=== PATIENT | female | born 1990 | race Caucasian/White ===

== ENCOUNTER 2023-11-06 10:14 | Emergency (ER) | payer OTHER, SELFPAY ==
--- NOTE | 2023-11-06 11:10 | ED_ITS ---
HPI - Headache General Chief Complaint: Headache Stated Complaint: migraine Time Seen by Provider: 11/06/23 12:49 Source: patient and family (patient's fianc?) Mode of arrival: ambulatory Limitations: no limitations History of Present Illness ED Provider: Mishel Harley PA-C HPI Narrative: Patient is a 33 year old assigned female at with a history of migraines presenting to the emergency department today with right sided sinus pressure and migraine headache. Patient states that she has had 3 days of right sided facial pain that has caused a right sided headache. Patient states that she is concerned because her brother was recently diagnosed with an acoustic neuroma. Patient denies any dizziness, lightheadedness, abdominal pain, fever, chills, blurry vision, double vision, loss of vision, chest pain, difficulty breathing, shortness of breath, back pain, night sweats, pain with urination, increased urinary frequency, increased urinary urgency, blood in her urine or stool, syncope or a near syncopal episode, recent trauma or falls, bowel incontinence, bladder incontinence, or any other complaints at this time. MD elicited complaint: headache Onset (ago): day(s) (3) Location: right and facial Related Data Previous Rx's ?Medication ?Instructions ?Recorded ondansetron 4 mg disintegrating 4 mg PO Q8H 3 days #9 tabs 11/06/23 tablet Allergies Allergy/AdvReac Type Severity Reaction Status Date / Time cephalexin [From Keflex] Allergy Rash Verified 11/06/23 11:12 oxycodone Allergy Angioedema Verified 11/06/23 11:12 Review of Systems 2 Constitutional: Constitutional: Reports no additional constitutional complaints, Denies chills, Denies fever(s), Reports headache(s) and Denies night sweats Eyes: Eyes: Reports no additional eye complaints, Denies blurry vision, Denies change in vision, Denies diplopia, Denies eye discharge, Denies loss of vision and Denies eye pain ENT: Denies dizziness, Reports headache(s) and Reports sinus pain Cardiovascular: Cardiovascular: Reports no additional cardiovascular complaints, Denies chest pain, Denies lightheadedness, Denies Loss of Consciousness and Denies dyspnea Respiratory: Respiratory: Reports no additional respiratory complaints and Denies dyspnea Gastrointestinal: Gastrointestinal: Reports no additional gastrointestinal complaints, Denies abdominal pain, Denies melena, Denies hematochezia, Denies change in bowel habits and Denies change in stool character Genitourinary: Genitourinary: Denies hematuria, Denies urinary frequency, Denies dysuria, Denies urinary incontinence, Denies urinary hesitancy and Denies urinary urgency Musculoskeletal: Musculoskeletal: Reports no additional musculoskeletal complaints, Denies numbness and Denies tingling Neurologic: Denies dizziness, Reports headache(s), Denies loss of vision, Denies numbness and Denies tingling Psychiatric: Psychiatric: Reports no additional psychiatric complaints Endocrine: Endocrine: Reports no additional endocrine complaints Hematologic/Lymphatic: Hematologic/Lymphatic: Reports no additional hematologic/lymphatic complaints Allergic/Immunologic: Allergic/Immunologic: Reports no additional allergic/immunologic complaints PMFSH Past Medical History Attestation statement: The following information was validated with the patient. (patient's fianc? validated all information) Source: old records reviewed, obtained from family (patient's fianc? provided additional history and confirmed the history provided by the patient) and nursing notes reviewed Social History Social History Advance Directives: No Physical Exam 2 Vital Signs: Vital Signs: Last Vital Signs Temp 97 F 11/06/23 11:11 Pulse 81 11/06/23 11:11 Resp 16 11/06/23 11:11 BP 127/73 11/06/23 11:11 Pulse Ox 100 11/06/23 11:11 O2 Del Method Room Air 11/06/23 11:11 BMI result Body Mass Index 43.0 Const: General: cooperative, no acute distress, alert and awake Nutritional Appearance: well nourished Orientation/consciousness: patient oriented x3 Limitations: no limitations HEENT: Head: Yes normal to inspection and Yes atraumatic Ears: hearing grossly normal bilaterally and external ears normal General nose exam: Normal external nose present, no nasal discharge noted and no epistaxis Face and sinus: Yes normal facial exam, No abrasion and No laceration Mouth: Normal oral and palatal mucosa present, no drooling and no muffled voice Eyes: General: appearance normal, both eyes and all related structures P eriorbital: periorbital findings normal Eyelids: Yes eyelids normal C onjunctivae: conjunctivae normal Pupils: Equal, round and reactive pupils present EOM: EOMs intact bilaterally Neck: Neck: Yes normal visual inspection, Yes full ROM and Yes no lymphadenopathy Chest: Chest palpation & inspection: normal inspection of the chest Resp: Effort & Inspection: normal respiratory effort and able to speak in complete sentences GI: Inspection: Yes normal to inspection Neuro: General: patient oriented x3 and moves all extremities Cranial nerves: Yes Equal, round and reactive pupils present Cognition (Neuro): n ormal cognition Extrem: General: Yes normal to inspection, Yes full ROM and Yes capillary refill normal Psych: Appearance: grossly normal Mental Status: mental status grossly normal Affect: normal affect Attitude: cooperative Thought process: N ormal thought process present Thought content: Normal thought content present Insight: Good insight present (Psych) Course Course Course Narrative: This is a Rapid Medical Examination (RME) performed by Dequan Moffett PA-C in triage. Full HPI, ROS, assessment and treatment plan per primary provider in the Main ED. 33 yo female with history of migraines on Topamax who is presenting to the ER for evaluation of right sided migraine for the last 3 days. went to Urgent Care who referred her to the ER for further evaluation and treatment. has responded well to IV meds and IM meds in the past. headache now is right sided which is typical for her. in triage, patient AAO X3, no distress. strength is equal and symmetrical throughout. no nystagmus. breathing comfortably. Plan: treat w/ IV vs IM meds per primary provider Medications Administered Discontinued Medications Generic Name Dose Route Start Last Admin Trade Name Freq PRN Reason Stop Dose Admin Diphenhydramine HCl 50 mg 11/06/23 12:50 11/06/23 13:29 Diphenhydramine Hcl 50 Mg/Ml Vial IVPUSH 11/06/23 12:51 50 mg ONCE ONE Administration Sodium Chloride 1,000 mls @ 999 mls/hr 11/06/23 13:00 11/06/23 13:28 Ns IV 11/06/23 14:00 999 mls/hr .Q1H1M JATINDER Administration Ketorolac Tromethamine 15 mg 11/06/23 12:50 11/06/23 13:29 Ketorolac Tromethamine 15 Mg/Ml Vial IVPUSH 11/06/23 12:51 15 mg ONCE ONE Administration Ondansetron HCl 4 mg 11/06/23 12:50 11/06/23 13:29 Ondansetron Hcl 4 Mg/2 Ml Vial IVPUSH 11/06/23 12:51 4 mg ONCE ONE Administration Medical Decision Making Medical Decision Making [facility] Narrative: Patient is a 33 year old assigned female at with a history of migraine presenting to the emergency department today with right sided headache and sinus pain. Patient's physical exam was unremarkable. Patient's blood work showed a mildly elevated WBC count which is consistent with a stress reaction, the rest of the patient's labs are unremarkable. I explained my physical exam findings as well as all test results to the patient and the patient's fiance. I answered all questions asked by the patient and the patient's fiance. Patient received IV Toradol, Zofran, Benadryl, and IV fluids which she stated helped her symptoms significantly. I stressed the importance of the patient taking her medication as directed (either prescribed or as the over the counter packaging recommends). I stressed the importance of the patient following up with her primary care provider and a neurologist. I stressed the importance of the patient returning to the emergency department immediately if her symptoms were to worsen or if she were to develop any dizziness, shortness of breath, difficulty breathing, chest pain, blurry vision, loss of vision, nausea, vomiting, abdominal pain, fever, chills, back pain, or any other complaints. Patient and the patient's fiance verbalized agreement and understanding with this treatment plan and discharge. Differential Diagnosis Differential Diagnoses: The differential diagnosis associated with the presentation includes Migraine COVID-19 Influenza RSV Sinusitis Admission/Observation Consideration of admission/observation: Escalation of care including admission/observation considered Patient would have been admitted to the hospital had her work up had any findings where hospital admission was appropriate and her clinical presentation warranted hospital admission. Lab Data [facility] Lab Attestation statement: I reviewed the patient's lab results. My interpretation of these results are in the [facility] Rationale portion of this note. 11/06/23 13:14 11/06/23 13:14 Labs: Lab Results 11/06/23 11/06/23 Range/Units 13:14 13:24 WBC 14.7 H (4.8-10.8) X10*3/uL RBC 5.20 (4.20-5.50) X10*6/uL Hgb 15.2 (12.0-16.0) g/dl Hct 45.6 (37.0-47.0) % MCV 87.7 (80.0-98.0) fL MCH 29.2 (27.0-33.0) pg MCHC 33.3 (31.0-35.0) g/dl RDW 12.6 (11.0-16.0) % Plt Count 353 (160-400) X10*3/uL MPV 10.1 (9.4-12.3) fL Immature Gran % (Auto) 0.6 H (0.0-0.4) % Neut % (Auto) 79.6 H (45-73) % Lymph % (Auto) 15.8 L (20-40) % [place] % (Auto) 3.5 (2-11) % Eos % (Auto) 0.3 (0-4) % Baso % (Auto) 0.2 (0-2) % Lymph # (Auto) 2.3 (1.2-4.9) X10*3/uL [place] # (Auto) 0.5 (0.1-1.2) X10*3/uL Eos # (Auto) 0.0 (0.0-0.4) X10*3/uL Baso # (Auto) 0.0 (0.0-0.2) X10*3/uL Abs Immat Gran (auto) 0.09 H (0.00-0.03) X10*3/uL Absolute Neuts (auto) 11.7 H (2.0-8.3) x10*3/uL Absolute Nucleated RBC 0.000 (0.0-0.012) X10*3/uL Nucleated RBC % (auto) 0.0 (0.0-0.2) /100WBC Sodium 138 (135-145) mmol/L Potassium 3.6 (3.3-5.1) mmol/L Chloride 110 H (96-108) mmol/L Carbon Dioxide 20 L (22-29) mmol/L Anion Gap 12 (12-20) BUN 9 (9-16) mg/dL Creatinine 0.80 (0.5-1.4) mg/dL Estim Creat Clear Calc 139.5 Estimated GFR > 60 Random Glucose 114 (60-115) mg/dL Calcium 9.3 (8.4-10.2) mg/dL Total Bilirubin 0.5 (0.0-1.0) mg/dL AST 16 (5-31) U/L ALT 23 (0-31) U/L Alkaline Phosphatase 99 (39-117) U/L Total Protein 8.0 (6.5-8.0) g/dL Albumin 4.5 (3.5-5.0) g/dL Beta HCG, Quant < 2 mIU/mL Influenza Type A (PCR) NEGATIVE (Negative) Influenza Type B (PCR) NEGATIVE (Negative) RSV RNA Qual (PCR) NEGATIVE (Negative) SARS-CoV-2 RNA (RT-PCR) NEGATIVE (Negative) S. pyogenes GrpA BROOK Negative (Negative) Independent Historian Clinical information obtained from an independent historian. History obtained from or confirmed by: Other (patient's fiance provided additional history and confirmed the history provided by the patient.) Discharge Plan Discharge Clinical Impression: Migraine Patient Disposition: Home, Self-Care Instructions: Migraine Headache (ED) Additional Instructions: Follow up with your primary care provider and a neurologist. Return to the emergency department immediately if your symptoms worsen or if you develop any dizziness, shortness of breath, difficulty breathing, chest pain, blurry vision, loss of vision, nausea, vomiting, abdominal pain, fever, chills, back pain, or any other complaints. Prescriptions: New ondansetron 4 mg tablet,disintegrating 4 mg PO Q8H 3 Days Qty: 9 0RF Referrals: [facility] [place] [facility] [Provider Group] (Call to establish and follow up with a neurologist. ) Duy Adams MD [Primary Care Provider] - Stand Alone Forms: Work/School Release Print Language: Malagasy
[2023-11-06 11:11] VITALS: BP 127/73; PULSE 81; RESP 16; TEMP 36.1; O2SAT 100; BMI 43.0
[2023-11-06 13:19] LABS: MANUAL DIFF FLAG NO
[2023-11-06 13:28] LABS: Basophils Percent Auto 0.2 % (0-2); Eosinophils Percent Auto 0.3 % (0-4); Hematocrit 45.6 % (37.0-47.0); Hemoglobin 15.2 g/dl (12.0-16.0); Imm Gran Abs Auto 0.09 X10*3/uL (0.00-0.03); Imm Gran Pct Auto 0.6 % (0.0-0.4); Lymphocytes Absolute Auto 2.3 X10*3/uL (1.2-4.9); Lymphocytes Percent Auto 15.8 % (20-40); Mean Corpuscular HGB Conc 33.3 g/dl (31.0-35.0); Mean Corpuscular Hemoglobin 29.2 pg (27.0-33.0); Mean Corpuscular Volume 87.7 fL (80.0-98.0); Mean Platelet Volume 10.1 fL (9.4-12.3); Monocytes Absolute Auto 0.5 X10*3/uL (0.1-1.2); Monocytes Percent Auto 3.5 % (2-11); Neutrophils Absolute Auto 11.7 x10*3/uL (2.0-8.3); Neutrophils Percent Auto 79.6 % (45-73); Platelet Count 353 X10*3/uL (160-400); Red Cell Distribution Width 12.6 % (11.0-16.0); White Blood Count 14.7 X10*3/uL (4.8-10.8)
[2023-11-06] MEDS: 0.9 % Sodium Chloride 1,000 ML 999 ML IV (13:28)
[2023-11-06] MEDS: Ketorolac Tromethamine 15 MG/ML VIAL IVPUSH (13:29)
[2023-11-06] MEDS: ondansetron HCL 4 MG/2 ML VIAL IVPUSH (13:29)
[2023-11-06] MEDS: diphenhydrAMINE HCL 50 MG/ML VIAL IVPUSH (13:29)
[2023-11-06 13:42] LABS: Alanine Aminotransferase 23 U/L (0-31); Albumin Level 4.5 g/dL (3.5-5.0); Alkaline Phosphatase 99 U/L (39-117); Anion Gap 12 (12-20); Aspartate Amino Transferase 16 U/L (5-31); Bilirubin Total 0.5 mg/dL (0.0-1.0); Blood Urea Nitrogen 9 mg/dL (9-16); Calcium 9.3 mg/dL (8.4-10.2); Carbon Dioxide 20 mmol/L (22-29); Chloride 110 mmol/L (96-108); Creatinine Clr Calc Pharmacy 139.5; Estimated Glomerular Filt Rate > 60; Glucose Random 114 mg/dL (60-115); Potassium 3.6 mmol/L (3.3-5.1); Sodium 138 mmol/L (135-145)
[2023-11-06 13:44] LABS: HCG Quantitative < 2 mIU/mL
[2023-11-06 14:06] LABS: IDNOW Serial# 08D9AD1C; Strep A Nucleic Acid Negative (Negative)
[2023-11-06 14:17] LABS: Influenza A PCR NEGATIVE (Negative); Influenza B PCR NEGATIVE (Negative); Resp Syncy Virus RNA Qual PCR NEGATIVE (Negative); SARS COV2 PCR INHOUSE NEGATIVE (Negative)
[2023-11-06 15:47] VITALS: BP 127/73; PULSE 81; RESP 16; TEMP 36.1; O2SAT 100
== END 2023-11-06 15:47 | disposition home or self-care (01) ==
PROVIDERS: Physician Assistant Medical; Emergency Provider Emergency Medicine; PCP Internal Medicine
DX: G43.909 Migraine, unspecified, not intractable, without status migrainosus (principal); Z03.818 Encounter for observation for suspected exposure to other biological agents ruled out
CPT/HCPCS: 0241U; 36415; 80053; 84702; 85025; 87651; 96361; 96374; 96375; 99283; 99284; J1200; J1885; J2405

== ENCOUNTER 2023-12-02 14:15 | Outpatient (AMB) | payer OTHER, SELFPAY ==
--- NOTE | 2023-12-02 14:21 | A.OFFVIS_ITS ---
Vital Signs 12/02/23 14:22 Height 5 ft 7 in Weight 274 lb BMI 42.9 BP 114/76 Intake Visit Reasons: New patient Annual Intake Note: First pap, never had pelvic exam before, pt c/o painful intercourse Student Support Counselor: Student Support Counselor Present (Antonia) Allergies cephalexin [From Keflex] Allergy (Verified 12/02/23 14:21) Rash oxycodone Allergy (Verified 12/02/23 14:21) Angioedema Is last menstrual period known: Yes Last menstrual period: 11/12/23 HPI Comments Details: She is a premenopausal woman presenting for new patient annual examination. Doing well with concerns: Painful intimacy at times. This is her 1st pelvic exam today. She tries to eat healthy and stays active with exercise. Regular monthly menses. Currently is sexually active one partner only for both, using condoms. She denies vaginal itching and irritation. STI screening offered; she declined. Denies family history of ovarian or colon cancer. FH breast cancer-mom and MGM. Unsure BRCA testing. Last pap smear-never. [facility] Medical History (Updated 12/02/23 @ 14:44 by Enma Sen CNM) Migraine with aura Family History (Updated 12/02/23 @ 14:28 by XAVIER Brewer) Mother History of breast cancer Maternal Grandmother History of breast cancer Social History (Updated 12/02/23 @ 14:29 by XAVIER Brewer) Alcohol intake: never Patient Tobacco Use Status: Never used Tobacco Sexually active: Yes Sexual orientation: Straight/Heterosexual Gender identity: Female Female Reproductive History Menstrual Duration of menses: 3-5 days Date of last menstrual period: 11/12/23 control method: condoms Total pregnancies: 0 Review of Systems Const All systems reviewed & are unremarkable except as noted in HPI and below Reports as per HPI Eyes Reports no additional complaints ENT Reports no additional complaints Card Reports no additional complaints Resp Reports no additional complaints GI Reports as per HPI and Reports no additional complaints Reports as per HPI Musc Reports no additional complaints Skin/Breast Reports as per HPI Neuro Reports no additional complaints Psych Reports no additional complaints Endo Reports no additional complaints Danial/Lymph Reports no additional complaints Aller/Immun Reports no additional complaints Physical Exam Vital Signs: Last Vital Signs BP 114/76 12/02/23 14:22 BMI result Body Mass Index 42.9 Const General: cooperative, healthy appearing, no acute distress, well developed and alert Orientation/consciousness: patient oriented x3 HEENT Head: Yes normal to inspection Eyes General: appearance normal, both eyes and all related structures Neck Neck: Yes normal visual inspection Thyroid: Thyroid normal Chest Chest palpation & inspection: normal inspection of the chest and other (no puckering, dimpling, peau de orange, retraction, discharge, masses) Breast/axilla inspection: normal inspection of the breasts and Other (Pendulous) Breast/axilla palpation: normal palpation of the breasts Resp Effort & Inspection: normal respiratory effort GI Inspection: Yes normal to inspection Palpation (GI): Soft to palpation Rectal Exam - Female: deferred Other: Pap sampling limited due to visualization unable to insert larger longer speculum due to patient's intolerance of exam. General: Yes bladder normal to palpation External Female Exam: normal external appearance and normal appearance of the urethra Speculum Exam - Vagina: normal appearance of the vagina, normal palpation, normal vaginal discharge and other (Small introitus, long canal) Speculum Exam - Cervix: normal appearance of the cervix, normal palpation and Other cervical findings present (Unable to visualize) Bimanual exam- vagina & uterus: normal bimanual exam, normal palpation, uterine size normal, bladder normal to palpation, normal palpation and non-tender Bimanual Exam- Adnexa, other: no masses Skin General skin exam: no rashes or lesions noted Rashes: no rashes Neuro General: patient oriented x3 Cognition (Neuro): normal cognition Extrem General: Yes normal to inspection Psych Attitude: cooperative Thought process: Normal thought process present Assessment & Plan Assessment & Plan (1) Encounter for well woman exam with routine gynecological exam: Code(s): Z01.419 - Encounter for gynecological examination (general) (routine) without abnormal findings Category: Medical Plan Discussed: Current recommendations for pap smears per ASCCP guidelines. Pap obtained, await results for sampling adequacy. Breast awareness and periodic breast exams. Painful intimacy, use of vaginal lubricants. Maintain a healthy lifestyle including a well balanced diet and routine exercise. BRCA testing, will speak with her mom whether she had testing results and what they were, and will consider having testing herself. Patient verbalizes understanding and agrees to the plan of care. She was given opportunity to ask questions and all questions were answered to the best of my ability. 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 This note is constructed using voice recognition software. While every effort has been made to ensure accuracy, grommet worker errors may have been included. Coding Level of Care Code New Pt Prev Care 18-39yr([id number] Diagnoses Encounter for well woman exam with routine gynecological exam Z01.419
[2023-12-02 14:22] VITALS: BP 114/76; BMI 42.9
== END 2023-12-02 15:15 | disposition home or self-care (01) ==
PROVIDERS: PCP Internal Medicine; Visit Provider Advanced Practice Midwife
DX: Z01.419 Encounter for gynecological examination (general) (routine) without abnormal findings (principal)
CPT/HCPCS: 99385

== ENCOUNTER → 2023-12-02 14:15 | Outpatient (BNVA) | payer OTHER, SELFPAY | PROVIDERS: PCP Internal Medicine; Visit Provider Advanced Practice Midwife ==

== ENCOUNTER 2023-12-02 17:24 | Outpatient (REF) | payer OTHER, SELFPAY ==
[2023-12-05 13:44] LABS: HPV mRNA E6/E7 Not Detected (Not Detected)
== END 2023-12-02 17:25 | disposition home or self-care (01) ==
LOC: HO.LNP 17:24
PROVIDERS: Visit Provider Advanced Practice Midwife
DX: Z01.419 Encounter for gynecological examination (general) (routine) without abnormal findings (principal)
CPT/HCPCS: 87624; 88175

== ENCOUNTER 2024-06-21 14:15 | Outpatient (AMB) | payer OTHER, SELFPAY ==
[2024-06-21 14:48] VITALS: BP 120/74; PULSE 81; O2SAT 99; BMI 39.6
--- NOTE | 2024-06-21 14:48 | A.OFFVIS_ITS ---
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 Her headache history dates back to around age 12, with the evolution to distinct migraines by the onset of menarche. Her migraines are severe, with right-sided predominance, associated with light sensitivity, nausea, and intense pressure. Symptoms typically exacerbate premenstrually or with poor sleep posture. Alcohol and specific foods act as clear triggers. Recent management involves adjusting corrective eyewear, minimizing stress, and avoiding known dietary triggers. She notes a marked decrease in frequency and intensity of migraine symptoms, with a current pattern of sporadic headaches responding variably to [id number] intervention. Noteworthy was an episode necessitating emergency treatment but has implemented home care routines that reduce the severity and duration of migraines, when promptly addressing symptoms. Family History - Maternal history of migraines - Maternal and grandmother history of breast cancer - Paternal history of type 2 diabetes - Maternal history of Graves' disease - Brother with acoustic neuroma Review of Systems - Neurological: Reports occasional dizziness. Denies seizures, syncope, or focal neurological deficits. - Psychiatric: Reports generalized anxiety. - Musculoskeletal: Denies significant joint or muscular complaints. - Cardiovascular: Denies palpitations or other cardiovascular symptoms. - Respiratory: Denies asthma or respiratory conditions. - Gastrointestinal: Denies acid reflux or gastrointestinal distress. - Genitourinary: Reports regular menstrual cycles and denies urinary symptoms. - Hematologic: Denies clotting disorders or abnormal bleeding. - Endocrine: Denies thyroid issues or history of diabetes in herself. - Substance Use: Denies current alcohol consumption, tobacco, or expansive substance use. Headache Review - Onset: Initial headache onset around age 12 - Frequency: Headaches approximately 3-4 times a month - Quality: Right-sided frontal and temporal pressure, tension-like in quality - Location: Predominantly right-sided, frontal, and temporal areas - Associated Symptoms: Light sensitivity, nausea, intense right-sided pressure - Severity: Significant enough to disrupt daily activities, resolves over two to three days - Typical Duration: Migraines last about two days with a lingering postdrome - Aggravating Factors: Alcohol, specific foods such as curries and chele, sleep irregularities and postural challenges, stress - Alleviating Factors: Jzmt-[id number]-gnoeuox medications, improved sleep, avoiding triggers - Neurological Symptoms: No aura, no consistent sensory-motor deficits - Previous Management: Emergency room visits for severe episodes, glasses with a tint for light sensitivity - Family History: Maternal migraines emphasized Medication History Headache Lifestyle Factors - Caffeine Intake: Limits caffeine to mornings, stopping around 10 a.m. - Hydration: Remains conscientious about water intake - Exercise: Walks and hikes on weekends, maintains a treadmill at home - Sleep: Typically achieves 8-9 hours of sleep nightly, practices good sleep hygiene - Sexually Active: Reports no current control usage, no plans for Exercise - Type: Walking and hiking- weather permitting - Frequency: Several times per week - Duration: Variable - Other: Goals to increase exercise consistency Food The patient maintains a reasonably healthy diet and avoids foods triggering her migraines. She limits caffeine and has an established morning routine, with reg ular protein intake in forms that balance her energy levels. She avoids alcohol due to its association with headache induction. Sleep - Typical Bedtime: 9-10 p.m. 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 Physical Exam - Neurological- Pupils equal, round, and reactive to light; cranial nerves II- XII grossly intact on examination - Musculoskeletal- Cervical and shoulder region demonstrate mild tension without focal neurologic deficits - Tendon Reflexes- 2+ bilateral tendon reflexes, symmetrical - Tandem, Romberg, Finger- nose- unremarkable. - MS 5/5 throughout Mental Status Exam - Appearance: well-groomed, cooperative during the assessment - Speech: Normal rate, rhythm, and volume - Mood: Anxious, but engaged appropriately - Sensorium: Alert and oriented - Thought Processes: Organized without evidence of delusions or hallucinations - Judgment: Intact as exhibited through engagement in problem-solving [facility] Medical History (Updated 06/21/24 @ 16:05 by PACHECO Malcolm) Migraine with aura Family History Mother History of breast cancer Maternal Grandmother History of breast cancer Social History Alcohol intake: never Patient Tobacco Use Status: Never used Tobacco Sexual orientation: Straight/Heterosexual Gender identity: Female Physical Exam Vital Signs: Last Vital Signs Pulse 81 06/21/24 14:48 BP 120/74 06/21/24 14:48 Pulse Ox 99 06/21/24 14:48 Oxygen Delivery Method Room Air 06/21/24 14:48 BMI result Body Mass Index 39.6 Assessment & Plan Assessment & Plan (1) Migraine without aura: Code(s): G43.009 - Migraine without aura, not intractable, without status migrainosus Category: Medical (2) Cervicalgia: Code(s): M54.2 - Cervicalgia Category: Medical Plan Plan To manage her migraines effectively, I will prescribe sumatriptan for acute relief, advising its use during preliminary headache symptoms. As adjunct support, magnesium supplementation at night and riboflavin in the morning aim to further reduce headache frequency. Her physical examination suggests benefits from posture correction through physical therapy. The application of previously successful mitigative strategies such as tinted glasses and trigger avoidance remains knutson. Discussion Notes During the consultation, we discussed the differential diagnosis of migraine headaches, emphasizing the chronicity and episodic nature consistent with the patient's symptoms. Alternative management options, including non- pharmacological measures such as posture improvement via physical therapy and lifestyle modifications like caffeine moderation, were also deliberated. I provided information on the use of sumatriptan for acute migraine episodes, discussing potential side effects and administration protocol to maximize benefit. The patient voiced understanding of the strategy outlined. Consideration of prior MRI findings negated the immediate need for further imaging barring new symptom onset. We planned follow-up contingent on her response to treatment adjustments and any new developments. Patient was informed and verbally consented to the use of an ambient scribe for clinic note documentation during this visit. Patient Instructions For acute migraine treatment: - Trial Sumatriptan 100mg tab, 1/2 - 1 tab (50-100mg) at onset of headache, may repeat in 2 hours. Max of 2 tabs (200mg) per 24 hours. - May take sumatriptan with OTC Tylenol 650-1,000mg every 4-6 hours, Ibuprofen (liquid gels) 600mg every 6 hours, or Naproxen (liquid gels) 440mg q 12 hrs prn. - Potential adverse effects of triptans, include but are not limited to nausea, fatigue, chest tightness/tingling (usually passes within a few minutes), medication overuse headaches. For migraine prevention treatment: -start riboflavin 400 mg daily in the morning. Start magnesium 400 mg daily at bedtime. Her overall migraine treatment: - Continue to avoid known dietary triggers and maintain a consistent sleep schedule. - Implement physical therapy to improve posture and potentially reduce headache episodes. - Monitor for any changes or increases in headache frequency or severity. - If symptoms worsen or do not improve with current interventions, contact for re-evaluation. Patient seen in collaboration with Dr. Radhika Taylor Pt to follow-up in 6 months or sooner prn. Orders: Orders PT Evaluation and Treatment 06/21/24 G43.009 - Migraine without aura, not intractable, without status migrainosus, M54.2 - Cervicalgia Medications: New magnesium oxide may hold for loose stools 400 mg PO BEDTIME 30 tabs 6RF 30 days sumatriptan succinate 50 - 100 mg orally at onset of headache, may repeat in 2 hrs PRN; max 2 tabs per day or 4 tabs/week (may take with Ibuprofen) 12 tabs 6RF migraine headache 30 days riboflavin (vitamin B2) 400 mg PO DAILY 30 tabs 6RF 30 days Changed From ondansetron 4 mg PO Q8H 3 days 9 tabs 0RF To ondansetron 4 mg PO Q4H PRN 30 tabs 2RF nausea and vomiting 30 days Coding Level of Care Code New Pt Level 4 (09224) Diagnoses Migraine without aura G43.009 Cervicalgia M54.2
--- OUTSIDE RECORDS SUMMARY | 2024-06-21 16:24 | XMS_ITS | Patient Health Record ---
Author Organization [facility] Billing Info Address [address] [place], [place] [id number] Support Name Relationship Address Phone [place] [facility] Contact Unknown [phone] Ramona Sheikh Guarantor Unknown Reason For Referral No Information Plan Of Treatment No Information Insurance Providers Payer Name Payer Address Payer Phone Subscriber Number Group Number Insured Name Patient Relationship to Insured Coverage Start Date Coverage End Date [facility] [address] [place], [place] [id number] Balbir Fowler Child - Insured does not have Financial Responsibility (includes legally adopted child) 4 5
== END 2024-06-21 16:24 | disposition home or self-care (01) ==
PROVIDERS: PCP Internal Medicine; Visit Provider Nurse Practitioner Family
DX: G43.009 Migraine without aura, not intractable, without status migrainosus (principal); M54.2 Cervicalgia
CPT/HCPCS: 99204

== ENCOUNTER → 2024-06-21 14:15 | Outpatient (BNVA) | payer OTHER, SELFPAY | PROVIDERS: PCP Internal Medicine; Visit Provider Nurse Practitioner Family ==

== ENCOUNTER 2024-09-10 15:44 | Outpatient (AMB) | payer OTHER, SELFPAY ==
--- OUTSIDE RECORDS SUMMARY | 2024-09-10 15:47 | XMS_ITS | Patient Health Record ---
Author Organization [facility] Billing Info Address [address] [place], [place] [id number] Support Name Relationship Address Phone [place] [facility] Contact Unknown [phone] Ramona Sheikh Guarantor Unknown Reason For Referral No Information Plan Of Treatment No Information Insurance Providers Payer Name Payer Address Payer Phone Subscriber Number Group Number Insured Name Patient Relationship to Insured Coverage Start Date Coverage End Date [facility] [address] [place], [place] [id number] Balbir Fowler Child - Insured does not have Financial Responsibility (includes legally adopted child) 4 5
--- NOTE | 2024-09-10 15:56 | A.OFFPC_ITS ---
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: No Accompanied by: Self / Same As Patient Allergies pineapple Allergy (Mild, Verified 09/10/24 16:58) Anaphylaxis prednisone Allergy (Unknown, Verified 09/10/24 16:58) Unknown cephalexin [From Keflex] Allergy (Verified 09/10/24 16:58) Rash oxycodone Allergy (Verified 09/10/24 16:58) Angioedema Medication List - Last Reconciled 09/10/24 by Patt Hurt PA-C magnesium oxide 400 mg PO BEDTIME 30 days ondansetron 4 mg PO Q4H PRN 30 days riboflavin (vitamin B2) 400 mg PO DAILY 30 days semaglutide 0.25 mg (0.368 mL) subcut QWEEK sumatriptan succinate 50 - 100 mg orally at onset of headache, may repeat in 2 hrs PRN; max 2 tabs per day or 4 tabs/week (may take with Ibuprofen) 30 days Tobacco use date assessed: 09/10/24 Dental Screening Dental Screen Date: 09/10/24 Did you have a dental visit in the last 12 months?: Yes Did you have a dental problem in the last 6 months where you did not have access to dental care?: No Was dental information given to patient?: Patient has dentist HPI [facility] Care HPI Details The patient is a 34-year-old female presenting to [facility] with a new primary care provider. She reports chronic migraines for which she uses sumatriptan as needed. Magnesium deficiency has been noted in the past, for which she takes supplements; these deficiencies are potentially implicated in her migraines. She uses Zofran to manage nausea associated with migraines. Her blood pressure is often low but is not symptomatic at this time. Additional significant family history includes breast cancer on the maternal side, highlighting the need for breast cancer screening, as she has not yet undergone a mammogram. The patient is aware of this risk factor and understands the need for regular, timely screening. For the past week, she has experienced a sensation of blockage in the ear, accompanied by sinus pressure. She denies fever and significant nasal congestion but reports fatigue without dizziness or visual disturbances. The symptoms suggest possible allergic rhinitis as well. Social History - Weight management: She reports losing 40 pounds with semaglutide use - Social history does not include specif ic work, education, or lifestyle details discussed [facility]LY [facility], [facility] Medical History (Updated 09/10/24 @ 16:57 by Patt Hurt PA-C) URI (upper respiratory infection) Family history of breast cancer Establishing care with new doctor, encounter for Obesity (BMI 35.0-39.9 without comorbidity) Migraine with aura Family History Mother History of breast cancer Graves disease Maternal Grandmother History of breast cancer Father No problems noted. Social History Housing: House Alcohol intake: never Patient Tobacco Use Status: Never used Tobacco service: No Current occupational status: employed Sexual orientation: Straight/Heterosexual Gender identity: Female Cognitive needs: No Hearing needs: No Vision needs: Yes (rx glasses) Questionnaire PHQ-9 Over the last 2 weeks, how often have you been bothered by any of the following problems? 1. Little interest or pleasure in doing things: not at all 2. Feeling down, depressed, or hopeless: not at all 3. Trouble falling or staying asleep, or sleeping too much: not at all 4. Feeling tired or having little energy: not at all 5. Poor appetite or overeating: not at all 6. Feeling bad about yourself - or that you are a failure or have let yourself or your family down: not at all 7. Trouble concentrating on things, such as reading the newspaper or watching television: not at all 8. Moving or speaking so slowly that other people could have noticed. Or the opposite - being so fidgety or restless that you have been moving around a lot more than usual: not at all 9. Thoughts that you would be better off or of hurting yourself in some way: not at all Total score: 0 Depression Screening Interpretation: Negative Depression Screening Done: Yes 60875 - PHQ-9 Billing: Yes Source: Developed by Drs. Ez Reynoso, Felicia Woods, Janak Salamanca and colleagues, with an educational lacey from [employer]. Thrive Questionnaire Date Thrive assessed: 09/10/24 I am a: Patient What is your living situation today?: I have a steady place to live Within the past 12 months, did the food you bought not last and you didn't have the money to get more?: Never true Within the past 12 months, did you worry whether your food would run out before you got money to buy more?: Never true Do you have trouble paying for medicines?: No Do you have trouble getting transportation to medical appointments?: No Do you have trouble paying your heating and electricity bill?: No Do you have trouble taking care of your child, family member or friend?: No Do you have trouble with day-to-day activities such as bathing, preparing meals, shopping, managing finances, etc.?: No Are you currently unemployed and looking for a job?: No Are you interested in more education?: No Please select the resources that you would like help with: None THRIVE Score: 0 AUDIT C Alcohol Use Questionnaire (AUDIT-C) 1. How often do you have a drink containing alcohol?: Never 3. How often do you have six or more drinks on one occasion?: Never Total Score: 0 Score Reviewed/Action Taken: No SILVANO-7 AMB Questionnaire SILVANO-7 Date SILVANO - 7 assessed: 09/10/24 Feeling nervous, anxious, or on edge: 0 = Not at all Not being able to stop or control worryin = Not at all Worrying too much about different things: 0 = Not at all Trouble relaxin = Not at all Being so restless that it is hard to sit still: 0 = Not at all Becoming easily annoyed or irritable: 0 = Not at all Feeling afraid as if something awful might happen: 0 = Not at all Total SILVANO-7 score (0-4 normal; 5-9 mild; 10-14 moderate; 15-21 severe): 0 Source: Developed by Drs. Ez Reynoso, Felicia Woods, Janak Salamanca and colleagues, with an educational lacey from [employer]. SILVANO-7 Assessment Billing SILVANO-7 Assessment Tool: SILVANO-7 Assessment 82797 Review of Systems Const Details: - General: Reports fatigue - HEENT: Reports sinus pressure and blocked feeling in the ear; denies fever - Cardiovascular: Denies chest pain or shortness of breath - Respiratory: Denies shortness of breath - Gastrointestinal: Denies abdominal pain, nausea, or diarrhea - Neurological: Reports migraines; denies dizziness - Musculoskeletal: Denies leg swelling - Hematologic: Past high white blood cell count noted - Allergic/Immunologic: Reports possible seasonal allergies but not confirmed Physical exam (Primary Care) Vital Signs: Last Vital Signs Temp 97.5 F 09/10/24 15:57 Pulse 58 09/10/24 15:57 Resp 14 09/10/24 15:57 BP 101/52 L 09/10/24 15:57 Pulse Ox 99 09/10/24 15:57 Oxygen Delivery Method Room Air 09/10/24 15:57 Care Plan Goal for BP management: <130/90 at Goal BMI result Body Mass Index 39.0 BMI Assessment/Plan discussion: High BMI High, discussed plan: lifestyle, weight reduction, dietary, physical activity and alcohol moderation Tobacco/Smoking Status: Tobacco use Status Tobacco use date assessed 09/10/24 09/10/24 15:58 Patient Tobacco Use Status Never used Tobacco 09/10/24 15:58 PHQ-9: PHQ-9 Score PHQ-9: Total score 0 09/10/24 15:58 Depression Screening Interpretation: Negative Thrive Assessment: Date of Thrive Assessment Date Thrive assessed 09/10/24 09/10/24 15:58 Const Other: Appearance: Alert. Oriented X3. No acute distress. Head: Normal external exam. Normocephalic. Atraumatic. Eyes: Pupils are equal, round, and reactive to light. Extraocular movements intact. Conjunctiva and sclera normal. Eyelids normal. Ears: External auditory canal normal. Tympanic membranes normal, but the drum looks a little scarred or inflamed. Throat: Pharynx normal. Uvula midline. Moist mucous membranes. Neck: Normal inspection. Neck supple. Full range of motion. No adenopathy. Thyroid Normal. No meningeal signs. No neck mass noted. Cardiovascular: Normal heart rate and rhythm. Heart sound normal. No murmurs noted. Pulses normal throughout. Respiratory: No respiratory distress. Painless inspiration. Breath sounds normal. No wheezes/rales/rhonchi noted. Chest nontender. No accessory muscle usage noted or decreased air movement noted. Abdomen: Soft and nontender. Bowel sounds normal in all 4 quadrants. No distention noted. No organomegaly noted. No visible injury noted. Back: No costovertebral angle tenderness. Full range of motion noted. Skin: Skin warm and dry. Normal skin color. Normal skin turgor. No rashes/lesions/lacerations noted. Extremities: No lower extremity edema. Extremities exhibit normal range of motion. Extremities nontender. Neuro: Oriented X 3. No motor deficit. No sensory deficit. Reflexes normal. Results Reviewed Results Reviewed: - Labs: Past report of elevated white blood cell count - Tests: Recent Pap smear was negative for cervical cancer - Other diagnostics: No mammogram performed yet due to family history Coding Level of Care Code New Pt Level 4 (01389) Complex EM visit Add On G2211 Diagnoses Establishing care with new doctor, encounter for Z76.89 Obesity (BMI 35.0-39.9 without comorbidity) E66.9 Migraine without aura G43.009 Family history of breast cancer Z80.3 URI (upper respiratory infection) J06.9 Additional Codes PHQ-9 - 43132 - PHQ-9 Billing: Yes ([id number]) SILVANO-7 Assessment Billing - SILVANO-7 Assessment Tool: SILVANO-7 Assessment 41348 ([id number]) Assessment & Plan Assessment & Plan (1) Establishing care with new doctor, encounter for: Code(s): Z76.89 - Persons encountering health services in other specified circumstances Category: Medical Plan: Patient is a transfer from Dr. Adams due to Dr. Adams is retiring. Patient establishing care with us. Has a history of migraine headaches, family history of breast cancer. (2) Obesity (BMI 35.0-39.9 without comorbidity): Code(s): E66.9 - Obesity, unspecified Category: Medical Plan: Patient reports she is on compound this semaglutide and is requesting for it to be sent to her pharmacy to see if insurance will cover it due to patient does have obesity with a BMI of 39. Patient to improve her diet and exercise regimen. Condition is chronic and stable will continue to monitor. (3) Migraine without aura: Code(s): G43.009 - Migraine without aura, not intractable, without status migrainosus Category: Medical Plan: Sumatriptan use as needed for migraine management is continued, with magnesium supplements to address deficiency. Future blood work will check magnesium levels. Condition is chronic and stable will continue to monitor. (4) Family history of breast cancer: Code(s): Z80.3 - Family history of malignant neoplasm of breast Category: Medical Plan: Arrange mammography to assess cancer risk due to family history. (5) URI (upper respiratory infection): Code(s): J06.9 - Acute upper respiratory infection, unspecified Category: Medical Plan: Start Claritin D to address sinus congestion attributed to potential allergic rhinitis. Reassess if symptoms persist. Plan Plan Patient was informed and verbally consented to the use of an ambient scribe for clinic note documentation during this visit. 1. Migraine Without Aura Sumatriptan use as needed for migraine management is continued, with magnesium supplements to address deficiency. Future blood work will check magnesium levels. 3. URI Start Claritin D to address sinus congestion attributed to potential allergic rhinitis. Reassess if symptoms persist. 4. Low Blood Pressure Monitor blood pressure, maintaining adequate hydration, and being cautious of any symptomatic issues. 5. Allergic Rhinitis Initiate Claritin D for symptomatic relief. Evaluate effectiveness and reassess for further allergy management. 6. Family History Of Breast Cancer Arrange mammography to assess cancer risk due to family history. I discussed with the patient all symptoms noted, including the potential for sinusitis and allergic rhinitis, recommending Claritin D for symptom management. We also discussed the continuation of migraine treatment with sumatriptan and magnesium supplements, and considerations for low blood pressure monitoring. Based on significant family history, further discussion ensued regarding breast cancer screening, emphasizing the importance of a mammogram. I advised coordinat ion with imaging services for scheduling. The patient was informed of the importance of blood work to monitor for magnesium levels, inflammatory markers, and a range of vitamins and minerals to ensure comprehensive evaluation. We agreed on current management strategies, and the patient voiced understanding and agreement with the described plan. Orders: Orders MM screening mammo BI Today Z12.31 - Encounter for screening mammogram for malignant neoplasm of breast Complete Blood Count Auto Diff Today Z00.00 - Encounter for general adult medical examination without abnormal findings Erythrocyte Sedimentation Rate Today Z00.00 - Encounter for general adult medical examination without abnormal findings Comprehensive [place]. Panel Fast Today Z00.00 - Encounter for general adult medical examination without abnormal findings Hemoglobin A1c Today Z00.00 - Encounter for general adult medical examination without abnormal findings Liver Panel Today Z00.00 - Encounter for general adult medical examination without abnormal findings Magnesium Today Z00.00 - Encounter for general adult medical examination without abnormal findings Vitamin B12 and Folate Today Z00.00 - Encounter for general adult medical examination without abnormal findings Vitamin D 25-OH Total Today Z00.00 - Encounter for general adult medical examination without abnormal findings C Reactive Protein Today Z00.00 - Encounter for general adult medical examination without abnormal findings Lipid Panel Today Z00.00 - Encounter for general adult medical examination without abnormal findings TSH reflex Free T4 Today Z00.00 - Encounter for general adult medical examination without abnormal findings Medications: New loratadine-pseudoephedrine 5-120 mg ER (Claritin-D 12 Hour) 1 tab PO Q12H 30 tabs 0RF semaglutide for 4 weeks 0.25 mg (0.368 mL) subcut QWEEK 3 mL 0RF E66.9 - Obesity, unspecified Patient Instructions: - Take Claritin D as directed for sinus and allergy relief, stopping after 3 days and consulting if symptoms persist. - Use sumatriptan as needed for migraines. - Continue magnesium supplements and maintain hydration. - Schedule a mammogram as discussed, and fast before your upcoming blood tests. - Follow up in approximately 6 months unless there are new or worsening symptoms. - Contact us or visit your local medical facility if you experience severe or new symptoms.
[2024-09-10 15:57] VITALS: BP 101/52; PULSE 58; RESP 14; TEMP 36.4; O2SAT 99; BMI 39.0
== END 2024-09-10 16:37 | disposition home or self-care (01) ==
LOC: HO.HMCSH 15:44
PROVIDERS: PCP Internal Medicine; Visit Provider Physician Assistant Medical
DX: Z76.89 Persons encountering health services in other specified circumstances (principal); E66.9 Obesity, unspecified; G43.009 Migraine without aura, not intractable, without status migrainosus; Z80.3 Family history of malignant neoplasm of breast; J06.9 Acute upper respiratory infection, unspecified

== ENCOUNTER → 2024-09-10 15:44 | Outpatient (BNVA) | payer OTHER, SELFPAY | PROVIDERS: PCP Internal Medicine; Visit Provider Physician Assistant Medical | DX: G43.009 Migraine without aura, not intractable, without status migrainosus (principal); E66.9 Obesity, unspecified; J06.9 Acute upper respiratory infection, unspecified; Z76.89 Persons encountering health services in other specified circumstances; Z80.3 Family history of malignant neoplasm of breast | CPT/HCPCS: 96127 ==

== ENCOUNTER 2024-10-01 06:15 | Outpatient (REF) | payer OTHER, SELFPAY ==
[2024-10-01 10:20] LABS: MANUAL DIFF FLAG NO
[2024-10-01 10:31] LABS: Basophils Absolute Auto 0.1 X10*3/uL (0.0-0.2); Basophils Percent Auto 0.6 % (0-2); Eosinophils Absolute Auto 0.1 X10*3/uL (0.0-0.4); Hematocrit 39.9 % (37.0-47.0); Hemoglobin 13.5 g/dl (12.0-16.0); Imm Gran Abs Auto 0.04 X10*3/uL (0.00-0.03); Imm Gran Pct Auto 0.4 % (0.0-0.4); Lymphocytes Absolute Auto 3.2 X10*3/uL (1.2-4.9); Lymphocytes Percent Auto 30.6 % (20-40); Mean Corpuscular HGB Conc 33.8 g/dl (31.0-35.0); Mean Corpuscular Hemoglobin 29.1 pg (27.0-33.0); Mean Platelet Volume 10.6 fL (9.4-12.3); Monocytes Absolute Auto 0.7 X10*3/uL (0.1-1.2); Monocytes Percent Auto 6.3 % (2-11); Neutrophils Absolute Auto 6.3 x10*3/uL (2.0-8.3); Neutrophils Percent Auto 61.1 % (45-73); Platelet Count 338 X10*3/uL (160-400); Red Blood Count 4.64 X10*6/uL (4.20-5.50); Red Cell Distribution Width 12.3 % (11.0-16.0); White Blood Count 10.4 X10*3/uL (4.8-10.8)
[2024-10-01 10:38] LABS: Estimated Average Glucose 103 mg/dL; Hemoglobin A1c % 5.2 % (<6.0)
[2024-10-01 11:14] LABS: Folate 9.4 ng/mL (> or = 4.0); Vitamin B12 946 pg/mL (200-900)
[2024-10-01 11:16] LABS: Erythrocyte Sedimentation Rate 14 MM/HR (0-20)
[2024-10-01 13:04] LABS: TSH reflex Free T4 2.02 uIU/mL (0.32-4.0)
[2024-10-01 13:09] LABS: Anion Gap 13 (12-20)
[2024-10-01 13:23] LABS: Alanine Aminotransferase 21 U/L (0-31); Albumin Level 4.1 g/dL (3.5-5.0); Alkaline Phosphatase 83 U/L (39-117); Aspartate Amino Transferase 24 U/L (5-31); Bilirubin Direct 0.1 mg/dL (0.0-0.5); Bilirubin Total 0.4 mg/dL (0.0-1.0); Blood Urea Nitrogen 12 mg/dL (9-16); C Reactive Protein 0.49 mg/dL (< or = 0.50); Calcium 9.3 mg/dL (8.4-10.2); Carbon Dioxide 22 mmol/L (22-29); Chloride 107 mmol/L (96-108); Cholesterol 165 mg/dL (<200); Estimated Glomerular Filt Rate > 60; Glucose Fasting 79 mg/dL (60-99); HDL Cholesterol 34 mg/dL (>40); LDL Cholesterol Calculated 108 mg/dL (<100); Magnesium 2.2 mg/dL (1.6-2.6); Sodium 138 mmol/L (135-145); Total Protein 7.2 g/dL (6.5-8.0); Triglycerides 117 mg/dL (<150)
== END 2024-10-01 06:16 | disposition home or self-care (01) ==
LOC: HO.HMGCLDS 06:15
PROVIDERS: Visit Provider Physician Assistant Medical
DX: Z00.00 Encounter for general adult medical examination without abnormal findings (principal)
CPT/HCPCS: 36415; 80053; 80061; 80076; 82248; 82306; 82607; 82746; 83036; 83735; 84443; 85025; 85652; 86140

== ENCOUNTER 2024-11-19 13:35 | Outpatient (REF) | payer OTHER, SELFPAY ==
--- NOTE | ~2024-11-19 | MR_ITS ---
EXAMINATION: MR BREAST WITHOUT AND WITH CONTRAST, BILATERAL CLINICAL INFORMATION: High risk strong family history of breast cancer including mother in her 50s and grandmother in her 70s. COMPARISON: No prior breast imaging is available for comparison. TECHNIQUE: MR imaging of the breast was performed using T1, T2 and fat saturated techniques. Dynamic multiphase imaging was also performed after the administration of intravenous gadolinium contrast agent. Computer generated 3D reconstruction and enhancement kinetic analysis was ulitized by the radiologist in the interpretation of this examination. FINDINGS: Breast composition: There is scattered fibroglandular breast tissue Background parenchymal enhancement: Moderate LEFT BREAST: No suspicious enhancing masses or areas of non mass enhancement. No axillary or internal mammary adenopathy. RIGHT BREAST: No suspicious enhancing masses or areas of non mass enhancement. No axillary or internal mammary adenopathy. Limited views of the chest and abdomen are unremarkable. MR/MR breast BI wo/w con IMPRESSION: No MRI evidence of malignancy bilateral breasts. ASSESSMENT: LEFT BREAST: BI-RADS 1-Negative RIGHT BREAST: BI-RADS 1-Negative RECOMMENDATIONS: Yearly screening mammography Yearly Breast MRI screening surveillance. Electronically signed by: Cassandra Colvin DO 11/22/2024 02:26 PM EDT
== END 2024-11-19 13:36 | disposition home or self-care (01) ==
LOC: HO.MRI 13:35
PROVIDERS: PCP Physician Assistant Medical; Visit Provider Physician Assistant Medical
DX: Z12.39 Encounter for other screening for malignant neoplasm of breast (principal); Z80.3 Family history of malignant neoplasm of breast
CPT/HCPCS: 77049; A9585

== ENCOUNTER → 2024-11-19 13:56 | Outpatient (BNV) | payer OTHER, SELFPAY | PROVIDERS: PCP Physician Assistant Medical; Visit Provider Internal Medicine | DX: Z80.3 Family history of malignant neoplasm of breast (principal) | CPT/HCPCS: 77049 ==

== ENCOUNTER 2024-12-21 14:24 | Outpatient (AMB) | payer OTHER, SELFPAY ==
--- NOTE | 2024-12-21 14:29 | A.OFFVIS_ITS ---
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 Accompanied by: Self / Same As Patient Allergies pineapple Allergy (Mild, Verified 12/21/24 14:29) Anaphylaxis prednisone Allergy (Unknown, Verified 12/21/24 14:29) Unknown cephalexin (From Keflex) Allergy (Verified 12/21/24 14:29) Rash oxycodone Allergy (Verified 12/21/24 14:29) Angioedema Medication List - Last Reconciled 12/21/24 by PACHECO Malcolm loratadine-pseudoephedrine 5-120 mg ER (Claritin-D 12 Hour) 1 tab PO Q12H lorazepam (Ativan) 0.5 mg PO DAILY PRN magnesium oxide 400 mg PO BEDTIME 30 days ondansetron 4 mg PO Q4H PRN 30 days riboflavin (vitamin B2) 400 mg PO DAILY 30 days semaglutide 0.25 mg (0.368 mL) subcut QWEEK sumatriptan succinate 50 - 100 mg orally at onset of headache, may repeat in 2 hrs PRN; max 2 tabs per day or 4 tabs/week (may take with Ibuprofen) 30 days HPI Comments Details: 34-year-old female presents for follow-up of migraine without aura. Patient denies any significant medical history changes. Patient reports that the medications prescribed at the last visit, especially the ondansetron and sumatriptan, have been very helpful. She states that taking the ondansetron before the sumatriptan helps to reduce the severity of the associated nausea. Lights and sound continue to be strong migraine triggers. She notes that she is getting at the beginning of January, and is nervous that she will wake up on her wedding day with a migraine. She is not sure if there is anything that can be done about that. She does note that she and her bride?s [place] are planning to make an emergency bag cut, containing her medications and fluids, and snacks. She is planning to try her best to ensure rest and fluids, and eating on a routine basis on the days preceding and the day of the wedding. She forgot to do PT, which was ordered; however, she would like to do that at this time to help with her headaches, neck tightness, and posture. She is using her standing desk at work to help with her posture. 06/21/2024, previous HPI: History of Present Illness The patient is a 33-year-old female presenting with migraine headaches. Her headache history dates back to around age 12, with the evolution to distinct migraines by the onset of menarche. Her migraines are severe, with right-sided predominance, associated with light sensitivity, nausea, and intense pressure. Symptoms typically exacerbate premenstrually or with poor sleep posture. Alcohol and specific foods act as clear triggers. Recent management involves adjusting corrective eyewear, minimizing stress, and avoiding known dietary triggers. She notes a marked decrease in frequency and intensity of migraine symptoms, with a current pattern of sporadic headaches responding variably to tsvc-hmb-tgqbxup intervention. Noteworthy was an episode necessitating emergency treatment but has implemented home care routines that re duce the severity and duration of migraines, when promptly addressing symptoms. Family History - Maternal history of migraines - Maternal and grandmother history of breast cancer - Paternal history of type 2 diabetes - Maternal history of Graves' disease - Brother with acoustic neuroma Review of Systems - Neurological: Reports occasional dizziness. Denies seizures, syncope, or focal neurological deficits. - Psychiatric: Reports generalized anxiety. - Musculoskeletal: Denies significant joint or muscular complaints. - Cardiovascular: Denies palpitations or other cardiovascular symptoms. - Respiratory: Denies asthma or respiratory conditions. - Gastrointestinal: Denies acid reflux or gastrointestinal distress. - Genitourinary: Reports regular menstrual cycles and denies urinary symptoms. - Hematologic: Denies clotting disorders or abnormal bleeding. - Endocrine: Denies thyroid issues or history of diabetes in herself. - Substance Use: Denies current alcohol consumption, tobacco, or expansive substance use. Headache Review - Onset: Initial headache onset around age 12 - Frequency: Headaches approximately 3-4 times a month - Quality: Right-sided frontal and temporal pressure, tension-like in quality - Location: Predominantly right-sided, frontal, and temporal areas - Associated Symptoms: Light sensitivity, nausea, intense right-sided pressure - Severity: Significant enough to disrupt daily activities, resolves over two to three days - Typical Duration: Migraines last about two days with a lingering postdrome - Aggravating Factors: Alcohol, specific foods such as curries and chele, sleep irregularities and postural challenges, stress - Alleviating Factors: Vmsq-cqg-vcyyada medications, improved sleep, avoiding triggers - Neurological Symptoms: No aura, no consistent sensory-motor deficits - Previous Management: Emergency room visits for severe episodes, glasses with a tint for light sensitivity - Family History: Maternal migraines emphasized Headache Lifestyle Factors - Caffeine Intake: Limits caffeine to mornings, stopping around 10 a.m. - Hydration: Remains conscientious about water intake - Exercise: Walks and hikes on weekends, maintains a treadmill at home - Sleep: Typically achieves 8-9 hours of sleep nightly, practices good sleep hygiene - Sexually Active: Reports no current control usage, no plans for Exercise - Type: Walking and hiking- weather permitting - Frequency: Several times per week - Duration: Variable - Other: Goals to increase exercise consistency Food The patient maintains a reasonably healthy diet and avoids foods triggering her migraines. She limits caffeine and has an established morning routine, with regular protein intake in forms that balance her energy levels. She avoids alcohol due to its association with headache induction. Sleep - Typical Bedtime: 9-10 p.m. 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 Mental Status Exam - Appearance: well-groomed, cooperative during the assessment - Speech: Normal rate, rhythm, and volume - Mood: Anxious, but engaged appropriately - Sensorium: Alert and oriented - Thought Processes: Organized without evidence of delusions or hallucinations - Judgment: Intact as exhibited through engagement in problem-solving [facility] Medical History (Updated 12/27/24 @ 17:35 by PACHECO Malcolm) Migraine without aura Low HDL (under 40) Hyperlipidemia LDL goal <100 Elevated vitamin B12 level URI (upper respiratory infection) Family history of breast cancer Establishing care with new doctor, encounter for Obesity (BMI 35.0-39.9 without comorbidity) Migraine with aura Family History Mother History of breast cancer Graves disease Maternal Grandmother History of breast cancer Father No problems noted. Social History Housing: House Alcohol intake: never Patient Tobacco Use Status: Never used Tobacco service: No Current occupational status: employed Sexual orientation: Straight/Heterosexual Gender identity: Female Cognitive needs: No Hearing needs: No Vision needs: Yes (rx glasses) Physical Exam Vital Signs: Last Vital Signs Pulse 65 12/21/24 14:30 BP 110/68 12/21/24 14:30 Pulse Ox 99 12/21/24 14:30 Oxygen Delivery Method Room Air 12/21/24 14:30 BMI result Body Mass Index 38.4 Const General: cooperative, healthy appearing and no acute distress Neuro Other: Mild photophobia General: gait normal and moves all extremities Cranial nerves: Yes CN's II-XII intact bilaterally Assessment & Plan Assessment & Plan (1) Migraine without aura and without status migrainosus, not intractable: Code(s): G43.009 - Migraine without aura, not intractable, without status migrainosus Category: Medical (2) Cervicalgia: Code(s): M54.2 - Cervicalgia Category: Medical (3) Nausea: Code(s): R11.0 - Nausea Category: Medical Plan For overall headache management: * Continue to optimize good self-care, including eating, drinking regularly. And engaging in regular physical activity. * PT eval & tx- pt do at [facility] near her work location in [place]. For acute migraine treatment: * Continue Sumatriptan 100mg tab, 1/2 - 1 tab (50-100mg) at onset of headache, may repeat in 2 hours. Max of 2 tabs (200mg) per 24 hours. * May take sumatriptan with OTC Tylenol 650-1,000mg every 4-6 hours, Ibuprofen (liquid gels) 600mg every 6 hours, or Naproxen (liquid gels) 440mg q 12 hrs prn. * Trial Naratriptan 2.5mg tab, 1/2 - 1 tab (1.25-2.5mg) twice a day, starting 1- 2 days prior to hi stress event, such as her wedding. * Advised to trial this use once or twice prior to her upcoming wedding in January. * If needed, may take naratriptan with mpdr-wsk-xysvhaq (OTC) Tylenol 650 - 1000 mg every 4 -6 hours, or Ibuprofen (liquigel) 600mg every 6 hours, or Naproxen (liquigel) 440mg every 12 hrs as needed. * Potential adverse effects of naratriptan, include but are not limited to nausea, fatigue, chest tightness/tingling (usually passes within a few minutes), medication overuse headaches. * Continue ondansetron 4 mg every 4 hours as needed for nausea and vomiting * Previous acute migraine treatment trials: None other For migraine prevention treatment: * Riboflavin 400 mg daily in the morning. * Magnesium 400 mg daily at bedtime. * Previous migraine prevention trials: None other Pt to follow-up in 6 months or sooner prn. Orders: Orders PT Evaluation and Treatment 12/21/24 G43.009 - Migraine without aura, not i ntractable, without status migrainosus, M54.2 - Cervicalgia Medications: New naratriptan take 1 tab twice a day x's 3 days before a high-stress event 30 days 12 tabs 6RF migraine headache naratriptan take 1 tab twice a day x's 3 days before a high-stress event 12 tabs 6RF migraine headache 30 days Refilled ondansetron 4 mg PO Q4H PRN 30 tabs 6RF nausea and vomiting 30 days Coding Level of Care Code Est Pt Level 4 (84979) Diagnoses Migraine without aura and without status migrainosus, not intractable G43.009 Cervicalgia M54.2 Nausea R11.0
[2024-12-21 14:30] VITALS: BP 110/68; PULSE 65; O2SAT 99; BMI 38.4
--- OUTSIDE RECORDS SUMMARY | 2024-12-21 15:25 | XMS_ITS | Patient Health Record ---
Author Organization [id number] [facility] Address [address] [phone] Support Name Relationship Address Phone Ramirez Lockehan Emergency Contact Unknown Ramona Sheikh Guarantor Unknown Reason For Referral No Information Plan Of Treatment No Information Insurance Providers Payer Name Payer Address Payer Phone Subscriber Number Group Number Insured Name Patient Relationship to Insured Coverage Start Date Coverage End Date [facility] [address] [place], [place] [id number] Balbir Fowler Child - Insured does not have Financial Responsibility (includes legally adopted child) 4 5
--- OUTSIDE RECORDS SUMMARY | 2024-12-21 15:25 | XMS_ITS | Clinical Summary ---
Author Organization [facility] Address [address] [place] [id number] Phone Care Team Providers Care Dopeman Name Role Phone Pcp, Unknown Primary Care Provider Unavailabl e Allergies Active Allergy Reactions Criticality Noted Date Comments Oxycodone 11/27/2022 Oxycodone-Acetaminophen 11/27/2022 Prednisone 11/27/2022 Medications No known medications Active Problems No known active problems Social History Tobacco Use Types Packs/Day Years Used Date Smoking Tobacco: Never Passive Smoke Exposure: Never Smokeless Tobacco: Never Tobacco Cessation:Counseling Given: Not Answered Alcohol Use Standard Drinks/Week Comments Not Currently 0 (1 standard drink = 0.6 oz pur e alcohol) Education Answer Date Recorded Are you interested in more education? Not on naa e 11/27/2022 Are you concerned about learning? Not on file 11/27/2022 No 11/27/2022 No 11/27/2022 Digital Access Answer Date Recorded No 11/27/2022 No 11/27/2022 Reliable internet access at home? Not on file 11/27/2022 Device with a working camera? Not on file Comments Unknown Sex and Gender Information Value Date Recorded Sex Assigned at Not on file Legal Sex Female 8:31 AM EDT Gender Identity Not on file Sexual Orientation Not on file Last Filed Vital Signs Vital Sign Reading Time Taken Comments Blood Pressure 140/78 11/27/2022 8:51 AM EDT Pulse 87 11/27/2022 8:51 AM EDT Temperature - - Respiratory Rate 16 11/27/2022 8:51 AM EDT Oxygen Saturation 95% 11/27/2022 8:51 AM EDT Inhaled Oxygen Concentration - - Weight 128.4 kg (283 lb) 11/27/2022 8:51 AM EDT Height 170.2 cm (5' 7 ) 11/27/2022 8:51 AM EDT Body Mass Index 44.32 11/27/2022 8:51 AM EDT Plan of Treatment Health Maintenance Due Date Last Done Comments Adult Td,Tdap Booster 1992 DEPRESSION SCREENING 2004 HEPATITIS C SCREENING 2010 HIV ONE-TIME SCREENING (18-6 5 YEARS) 2010 PAP SMEAR 2013 COVID-19 VACCINE (2023-2 5 season) 2023 MENINGOCOCCAL VACCINES (ACWY) Completed 12/19/2010 SMOKING STATUS SCREENING (On ce After 26 Yrs) Completed 11/27/2022 HEPATITIS A VACCINES Aged Out No long er eligible based on patient's age to complete this topic HIB VACCINES Aged Out No longer eligi ble based on patient's age to complete this topic MENINGOCOCCAL VACCINES (B) Aged Out N o longer eligible based on patient's age to complete this topic PNEUMOCOCCAL VACCINES (0-49 years) Aged Out No longer eligible based on patient's age to complete this topic Medical Devices Not on file Insurance O [facility] HMO O O O [facility] HMO Care Teams Dopeman Relationship Specialty Start Date End Date Pcp, Unknown PCP - General 11/27/22 Additional Source Comments The information contained in this document represents components of the legal health record. It is not the complete legal health record.[facility]
== END 2024-12-21 15:35 | disposition home or self-care (01) ==
LOC: HO.HSMS 14:26
PROVIDERS: PCP Internal Medicine; Visit Provider Nurse Practitioner Family
DX: G43.009 Migraine without aura, not intractable, without status migrainosus (principal); M54.2 Cervicalgia; R11.0 Nausea
CPT/HCPCS: 99214

== ENCOUNTER 2025-04-26 14:24 | Outpatient (AMB) | payer OTHER, SELFPAY ==
--- NOTE | 2025-04-26 14:24 | MHC.PC.OV ---
Vital Signs 04/26/25 14:25 Height 5 ft 7 in Weight 235 lb BMI 36.8 BP 110/54 L Blood Pressure Location Rt brachial Position Sitting Respiration 14 Pulse 98 Pulse Source Pulse Oximeter Temp 97.6 F Temp Source Temporal Artery Scan Pulse Oximetry (%) 99 Oxygen Delivery Method Room Air Intake Visit Reasons: sinuses Medical I D Sales Required: No Accompanied by: Self / Same As Patient Allergies pineapple Allergy (Mild, Verified 04/26/25 15:03) Anaphylaxis prednisone Allergy (Unknown, Verified 04/26/25 15:03) Unknown cephalexin (From Keflex) Allergy (Verified 04/26/25 15:03) Rash oxycodone Allergy (Verified 04/26/25 15:03) Angioedema Medication List - Last Reconciled 04/26/25 by Adan Briceño MD loratadine-pseudoephedrine 5-120 mg ER (Claritin-D 12 Hour) 1 tab PO Q12H magnesium oxide 400 mg PO BEDTIME 30 days multivitamin 1 tab PO DAILY ondansetron 4 mg PO Q4H PRN 30 days riboflavin (vitamin B2) 400 mg PO DAILY 30 days semaglutide 0.25 mg (0.368 mL) subcut QWEEK sumatriptan succinate 50 - 100 mg orally at onset of headache, may repeat in 2 hrs PRN; max 2 tabs per day or 4 tabs/week (may take with Ibuprofen) 30 days Tobacco use date assessed: 09/10/24 Dental Screening Dental Screen Date: 09/10/24 HPI HPI Comments History of Present Illness Details History of Present Illness - The patient is a 34-year-old female presenting with sinus congestion lasting for several months, which she describes as sinus pressure accompanied by her ears popping. - She has used Sudafed, which provides relief from the pressure, and has also tried an mwpq-gor-dasgoyd nasal spray intermittently. - She expresses concern about a potential ear infection. - The patient reports allergies to Keflex, oxycodone, and prednisone. 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 - Tobacco Use: She denies smoking. - Travel: The patient reports recent travel to [place]. - Sick Contacts: She denies any sick contacts at home. Results [facility] Medical History Migraine without aura Low HDL (under 40) Hyperlipidemia LDL goal <100 Elevated vitamin B12 level URI (upper respiratory infection) Family history of breast cancer Establishing care with new doctor, encounter for Obesity (BMI 35.0-39.9 without comorbidity) Migraine with aura Family History Mother History of breast cancer Graves disease Maternal Grandmother History of breast cancer Father No problems noted. Social History Housing: House Alcohol intake: never Patient Tobacco Use Status: Never used Tobacco service: No Current occupational status: employed Sexual orientation: Straight/Heterosexual Gender identity: Female Cognitive needs: No Hearing needs: No Vision needs: Yes (rx glasses) Questionnaire PHQ-9 Over the last 2 weeks, how often have you been bothered by any of the following problems? 1. Little interest or pleasure in doing things: not at all 2. Feeling down, depressed, or hopeless: not at all 3. Trouble falling or staying asleep, or sleeping too much: not at all 4. Feeling tired or having little energy: not at all 5. Poor appetite or overeating: not at all 6. Feeling bad about yourself - or that you are a failure or have let yourself or your family down: not at all 7. Trouble concentrating on things, such as reading the newspaper or watching television: not at all 8. Moving or speaking so slowly that other people could have noticed. Or the opposite - being so fidgety or restless that you have been moving around a lot more than usual: not at all 9. Thoughts that you would be better off or of hurting yourself in some way: not at all Total score: 0 Depression Screening Interpretation: Negative Depression Screening Done: Yes 18377 - PHQ-9 Billing: Yes Source: Developed by Drs. Ez Reynoso, Felicia Woods, Janak Salamanca and colleagues, with an educational lacey from [employer]. Thrive Questionnaire Date Thrive assessed: 09/10/24 I am a: Patient What is your living situation today?: I have a steady place to live Within the past 12 months, did the food you bought not last and you didn't have the money to get more?: Never true Within the past 12 months, did you worry whether your food would run out before you got money to buy more?: Never true Do you have trouble paying for medicines?: No Do you have trouble getting transportation to medical appointments?: No Do you have trouble paying your heating and electricity bill?: No Do you have trouble taking care of your child, family member or friend?: No Do you have trouble with day-to-day activities such as bathing, preparing meals, shopping, managing finances, etc.?: No Are you currently unemployed and looking for a job?: No Are you interested in more education?: No Please select the resources that you would like help with: None THRIVE Score: 0 AUDIT C Alcohol Use Questionnaire (AUDIT-C) 1. How often do you have a drink containing alcohol?: Never 3. How often do you have six or more drinks on one occasion?: Never Total Score: 0 Score Reviewed/Action Taken: No SILVANO-7 AMB Questionnaire SILVANO-7 Date SILVANO - 7 assessed: 09/10/24 Feeling nervous, anxious, or on edge: 0 = Not at all Not being able to stop or control worryin = Not at all Worrying too much about different things: 0 = Not at all Trouble relaxin = Not at all Being so restless that it is hard to sit still: 0 = Not at all Becoming easily annoyed or irritable: 0 = Not at all Feeling afraid as if something awful might happen: 0 = Not at all Total SILVANO-7 score (0-4 normal; 5-9 mild; 10-14 moderate; 15-21 severe): 0 Source: Developed by Drs. Ez Reynoso, Felicia Woods, Janak Salamanca and colleagues, with an educational lacey from [employer]. SILVANO-7 Assessment Billing SILVANO-7 Assessment Tool: SILVANO-7 Assessment 62115 Review of Systems Narrative Review of Systems - HEENT: Reports sinus congestion, sinus pressure, and otalgia described as her ears popping, which has persisted for months. Denies feeling generally sick. - Allergic/Immunologic: Reports allergies to Keflex, oxycodone, and prednisone. Physical exam (Primary Care) Vital Signs: Last Vital Signs Temp 97.6 F 04/26/25 14:25 Pulse 98 04/26/25 14:25 Resp 14 04/26/25 14:25 BP 110/54 L 04/26/25 14:25 Pulse Ox 99 04/26/25 14:25 Oxygen Delivery Method Room Air 04/26/25 14:25 BMI result Body Mass Index 36.8 Tobacco/Smoking Status: Tobacco use Status Tobacco use date assessed 09/10/24 04/26/25 14:26 Patient Tobacco Use Status Never used Tobacco 04/26/25 14:26 PHQ-9: PHQ-9 Score PHQ-9: Total score 0 04/26/25 14:34 Depression Screening Interpretation: Negative Thrive Assessment: Date of Thrive Assessment Date Thrive assessed 09/10/24 04/26/25 14:26 Narrative Physical Exam General: Cooperative and healthy appearing Nutritional Appearance: Well nourished Orientation/consciousness: Patient oriented x3 Limitations: No limitations Head: Normal to inspection General: Appearance normal, both eyes and all related structures Neck: Normal visual inspection Chest: Normal palpation of entire chest wall Respiratory: Normal respiratory effort Neurology: Patient oriented x3 Coding Level of Care Code Est Pt Level 3 (94534) Add On Problem Visit Only Diagnoses Acute sinusitis J01.90 Additional Codes SILVANO-7 Assessment Billing - SILVANO-7 Assessment Tool: SILVANO-7 Assessment 76721 ([id number]) PHQ-9 - 06696 - PHQ-9 Billing: Yes ([id number]) Assessment & Plan Assessment & Plan (1) Acute sinusitis: Code(s): J01.90 - Acute sinusitis, unspecified Plan Plan - To treat a presumed sinus infection, a 5-day course of Azithromycin will be prescribed. - It is recommended that the patient use a nasal spray daily until the end of winter to help alleviate her symptoms. - The prescription will be sent to the patient's preferred pharmacy, the [facility] in [place]. Discussion Notes I discussed with the patient that her symptoms of sinus congestion would be treated as a potential infection. I informed her that I would prescribe a 5-day course of Azithromycin and recommended daily use of a nasal spray until the winter season concludes to help manage her symptoms. After confirming her pharmacy, I advised her that I would send the prescription over. Patient Instructions - You will be treated for a sinus infection with a 5-day course of Azithromycin. - It is recommended that you use a nasal spray every day until the end of winter to help with your symptoms. - Your prescription has been sent to [facility] in [place].
[2025-04-26 14:25] VITALS: BP 110/54; PULSE 98; RESP 14; TEMP 36.4; O2SAT 99; BMI 36.8
--- OUTSIDE RECORDS SUMMARY | 2025-04-26 18:07 | XMS_ITS | Patient Health Record ---
Author Organization [facility] Billing Info Address [address] [place] [address] Phone [phone] Support Name Relationship Address Phone Tex Locke Emergency Contact Unknown [phone] Ramona Sheikh Self - patient is th e insured [address] [place] [address] [phone] Reason For Referral No Information Social History Sex Observation Social History Observation Description Sex Observation Female Social History Social History Social Info Question Answer Notes Tobacco Status: Patient is a never smoker High Risk for Sexually Acquired Diseases including HIV: At Risk: No Illicit Drug Use: Patient/Family reports: No illicit drug use Alcohol Use: Patient did prior to Ambulatory Status: : is independent Living Environment: Reported as: House/Condo/Apartment Plan Of Treatment No Information Insurance Providers Payer Name Payer Address Payer Phone Subscriber Number Group Number Insured Name Patient Relationship to Insured Coverage Start Date Coverage End Date [facility] [address] [place], [place] [id number] Balbir Fowler Child - Insured does not have Financial Responsibility (includes legally adopted child) 4 5
--- OUTSIDE RECORDS SUMMARY | 2025-04-26 18:07 | XMS_ITS | Clinical Summary ---
Author Organization [facility] Address [address] [place] [phone] Phone Care Team Providers Care Book Binder Name Role Phone Pcp, Unknown Primary Care [...] (18-6 5 YEARS) 2010 PAP SMEAR 2013 INFLUENZA VACCINE (#1) 2024 COVID-19 VACCINE (2024-2 6 season) 2024 MENINGOCOCCAL VACCINES (ACWY) Completed 12/19/2010 SMOKING STATUS [...] topic Medical Devices Not on file Insurance [place] [address] [place] [address] HMO O O O [facility] [employer] HMO Care Teams Book Binder Relationship Specialty Start Date End Date Pcp, Unknown PCP - General 11/27/22 Additional Source Comments The information contained in this document represents components of the legal health record. It is not the complete legal health record.[facility]
== END 2025-04-26 15:06 | disposition home or self-care (01) ==
LOC: HO.HMCSH 14:24
PROVIDERS: PCP Physician Assistant Medical; Visit Provider Internal Medicine
DX: J01.90 Acute sinusitis, unspecified (principal)

== ENCOUNTER → 2025-04-26 14:24 | Outpatient (BNVA) | payer OTHER, SELFPAY | PROVIDERS: PCP Physician Assistant Medical; Visit Provider Internal Medicine | DX: J01.90 Acute sinusitis, unspecified (principal) | CPT/HCPCS: 96127 ==